=== PATIENT | male | born 1985 | race Two or more races ===

== ENCOUNTER 2017-11-08 17:34 | Inpatient (IN) | payer MEDICAID ==
[~2017-11-08] VITALS: Ht 185.4 cm; Wt 157.0 kg
[2017-11-08] MEDS ORDERED: GABA-533 PO (19:34)
[2017-11-08] MEDS ORDERED: ALPR1TAB7 PO (19:34)
[2017-11-08 19:58] LABS: AMPHET/METH SCREEN,URINE NEGATIVE (NEGATIVE); BARBITURATE SCREEN, URINE NEGATIVE (NEGATIVE); BENZODIAZEPINES SCREEN,URINE NEGATIVE (NEGATIVE); CANNABINOID SCREEN,URINE NEGATIVE (NEGATIVE); COCAINE SCREEN,URINE NEGATIVE (NEGATIVE); METHADONE SCREEN, URINE NEGATIVE (NEGATIVE); OPIATE SCREEN,URINE NEGATIVE (NEGATIVE); PHENCYCLIDINE SCREEN,URINE NEGATIVE (NEGATIVE)
[2017-11-08] MEDS ORDERED: LORazepam 2 MG TABLET PO ONE (20:00)
[2017-11-08 20:54] LABS: ANION GAP 10 mmol/L (8-16); CALCIUM, TOTAL 8.5 mg/dL (8.8-10.5); CARBON DIOXIDE 27 mmol/L (22-29); CHLORIDE 104 mmol/L (98-107); CREATININE 0.97 mg/dL (0.60-1.30); GLOMERULAR FILTR. RATE CALC > 60 mL/min (>60); GLUCOSE,RANDOM 108 mg/dL (70-110); SODIUM SERUM 141 mmol/L (136-145); UREA NITROGEN, BLOOD 12 mg/dL (7-18)
[2017-11-08 20:59] LABS: ALANINE AMINOTRANSFERASE 70 U/L (12-78); ALBUMIN 3.6 g/dL (3.4-5.0); ALKALINE PHOSPHATASE 70 U/L (46-116); ASPARTATE AMINOTRANSFERASE 43 U/L (15-37); BILIRUBIN,TOTAL 0.4 mg/dL (0.1-1.0); TOTAL PROTEIN, SERUM 6.9 g/dL (6.4-8.2)
[2017-11-08] MEDS ORDERED: DiphenhydrAMINE HCL 50 MG CAPSULE PO ONE (21:00)
[2017-11-08] MEDS ORDERED: HALOPERIDOL 5 MG TABLET PO ONE (21:00)
[2017-11-08] MEDS ORDERED: ZOLPIDEM TARTRATE 10 MG TABLET PO PRN (21:15)
[2017-11-08 21:20] LABS: BASOPHILS % (AUTO) 0.7 % (0.0-2.0); EOSINOPHILS % (AUTO) 0.7 % (1.0-6.0); HEMATOCRIT 42.9 % (41-53); HEMOGLOBIN 14.7 g/dL (13.5-17.5); LYMPHOCYTES # (AUTO) 4.5 K/uL (1.0-4.8); LYMPHOCYTES % (AUTO) 35.9 % (22.0-44.0); MEAN CORPUSCULAR HEMOGLOBIN 29.4 pg (26.0-34.0); MEAN CORPUSCULAR HGB CONC 34.2 G/dL (31.0-37.0); MEAN CORPUSCULAR VOLUME 86 fL (80-100); MONOCYTES # (AUTO) 1.2 K/uL (0.1-1.0); MONOCYTES % (AUTO) 9.8 % (2.0-9.0); NEUTROPHILS # (AUTO) 6.7 K/uL (1.8-7.7); NEUTROPHILS % (AUTO) 52.9 % (40.0-70.0); PLATELET COUNT (AUTO) 317 K/uL (150-450); RED BLOOD CELL COUNT(AUTO) 4.99 MIL/uL (4.50-5.90); RED CELL DISTRIBUTION WIDTH 13.7 % (11.5-14.5)
[2017-11-09 03:02] LABS: CHOL/HDL RATIO 2.9 (4.2-7.3); CHOLESTEROL 109 mg/dL (131-200); HDL CHOLESTEROL 38 mg/dL (40-60); LDL CHOL (CALC.) 45 mg/dL (0-130); TRIGLYCERIDES 131 mg/dL (15-150)
[2017-11-09] MEDS: LORazepam 2 MG TABLET PO PRN ×4 (04:58→20:00)
[2017-11-09 08:18] VITALS: BP 128/75
[2017-11-09] MEDS ORDERED: ALBUTEROL SULFATE HFA 90 MCG/PUFF 8 GM INHALER IH PRN (12:00)
[2017-11-09] MEDS ORDERED: MAGNESIUM HYDROXIDE SUSPENSION 30 ML UDCUP PO PRN (12:00)
[2017-11-09] MEDS ORDERED: LOPERAMIDE HCL 2 MG CAPSULE PO PRN (12:00)
[2017-11-09] MEDS ORDERED: MAG HYDROX/AL HYDROX/SIMETH ES 30 ML SUSPENSION UDCUP PO PRN (12:00)
[2017-11-09] MEDS ORDERED: IBUPROFEN 400 MG TABLET PO PRN (12:00)
[2017-11-09] MEDS ORDERED: CloNIDine HCL 0.1 MG TABLET PO PRN (12:00)
[2017-11-09] MEDS ORDERED: PETROLATUM,WHITE 71 GM JELLY TP PRN (12:00)
[2017-11-09] MEDS ORDERED: ONDANSETRON HCL 4 MG TABLET PO PRN (12:00)
[2017-11-09] MEDS ORDERED: DOCUSATE SODIUM 100 MG CAPSULE PO PRN (12:00)
[2017-11-09] MEDS ORDERED: ACETAMINOPHEN 325 MG TABLET PO PRN (12:00)
[2017-11-09] MEDS: HALOPERIDOL 5 MG TABLET PO PRN ×2 (14:52→20:00)
[2017-11-09 17:10] VITALS: BP 120/83
[2017-11-09 17:26] VITALS: BP 120/83
[2017-11-09 18:10] VITALS: BP 120/78
[2017-11-09 19:10] VITALS: BP 122/77
[2017-11-09 20:10] VITALS: BP 123/83
[2017-11-10 00:10] VITALS: BP 111/82
[2017-11-10 04:19] VITALS: BP 123/83
[2017-11-10 06:49] VITALS: BP 124/82
[2017-11-10] MEDS: LORazepam 2 MG TABLET PO PRN ×4 (06:53→20:19)
[2017-11-10] MEDS: NICOTINE 14 MG/24 HOUR PATCH TD SCH (08:06)
[2017-11-10 08:26] VITALS: BP 144/90
[2017-11-10] MEDS: HALOPERIDOL 5 MG TABLET PO PRN ×3 (08:52→20:18)
[2017-11-10 09:03] LABS: HEMOGLOBIN A1C 5.3 % (4.5-6.2)
[2017-11-10 09:04] LABS: CHOL/HDL RATIO 3.3 (4.2-7.3); THYROID STIMULATING HORMONE 1.63 uIU/mL (0.36-3.74)
[2017-11-10 16:12] VITALS: BP 128/83
[2017-11-10] MEDS ORDERED: LORazepam 2 MG TABLET PO PRN (17:45)
[2017-11-10 20:10] VITALS: BP 124/80
[2017-11-10] MEDS: MIRTAZAPINE 15 MG TABLET PO SCH (20:18)
[2017-11-11] VITALS (8 sets, daily range): BP systolic 105–124; BP diastolic 77–97
[2017-11-11] MEDS ORDERED: LORazepam 2 MG TABLET PO PRN (07:00)
[2017-11-11 07:52] LABS: BASOPHILS % (AUTO) 0.5 % (0.0-2.0); EOSINOPHILS % (AUTO) 1.7 % (1.0-6.0); HEMOGLOBIN 17.7 g/dL (13.5-17.5); LYMPHOCYTES # (AUTO) 3.3 K/uL (1.0-4.8); LYMPHOCYTES % (AUTO) 29.2 % (22.0-44.0); MEAN CORPUSCULAR HEMOGLOBIN 29.6 pg (26.0-34.0); MEAN CORPUSCULAR HGB CONC 34.7 G/dL (31.0-37.0); MEAN CORPUSCULAR VOLUME 86 fL (80-100); MONOCYTES # (AUTO) 1.1 K/uL (0.1-1.0); MONOCYTES % (AUTO) 9.7 % (2.0-9.0); NEUTROPHILS # (AUTO) 6.6 K/uL (1.8-7.7); NEUTROPHILS % (AUTO) 58.9 % (40.0-70.0); PLATELET COUNT (AUTO) 298 K/uL (150-450); RED BLOOD CELL COUNT(AUTO) 5.96 MIL/uL (4.50-5.90); RED CELL DISTRIBUTION WIDTH 13.6 % (11.5-14.5)
[2017-11-11] MEDS: GABAPENTIN 300 MG CAPSULE PO SCH ×3 (08:34→17:15)
[2017-11-11] MEDS: LORazepam 2 MG TABLET PO SCH ×4 (08:34→21:28)
[2017-11-11] MEDS: NICOTINE 14 MG/24 HOUR PATCH TD SCH (08:35)
[2017-11-11] MEDS: HALOPERIDOL 5 MG TABLET PO PRN (11:44)
[2017-11-11] MEDS: MIRTAZAPINE 15 MG TABLET PO SCH (21:28)
[2017-11-12] VITALS (7 sets, daily range): BP systolic 104–119; BP diastolic 64–74
[2017-11-12] MEDS: GABAPENTIN 300 MG CAPSULE PO SCH ×3 (08:41→16:43)
[2017-11-12] MEDS: LORazepam 2 MG TABLET PO SCH ×4 (08:41→21:08)
[2017-11-12] MEDS: HALOPERIDOL 5 MG TABLET PO PRN (09:06)
[2017-11-12] MEDS: MIRTAZAPINE 15 MG TABLET PO SCH (21:08)
[2017-11-13 02:30] VITALS: BP 104/64
[2017-11-13 05:33] VITALS: BP 104/64
[2017-11-13] MEDS ORDERED: LORazepam 1 MG TABLET PO PRN (07:00)
[2017-11-13 08:00] VITALS: BP 136/80
[2017-11-13] MEDS: LORazepam 1 MG TABLET PO SCH ×4 (08:37→21:03)
[2017-11-13] MEDS: HALOPERIDOL 5 MG TABLET PO PRN ×2 (08:37→16:53)
[2017-11-13] MEDS: GABAPENTIN 300 MG CAPSULE PO SCH ×3 (08:37→17:02)
[2017-11-13 08:43] VITALS: BP 136/80
[2017-11-13 08:45] LABS: BASOPHILS % (AUTO) 0.7 % (0.0-2.0); EOSINOPHILS % (AUTO) 1.7 % (1.0-6.0); HEMATOCRIT 48.1 % (41-53); HEMOGLOBIN 16.7 g/dL (13.5-17.5); LYMPHOCYTES # (AUTO) 3.5 K/uL (1.0-4.8); LYMPHOCYTES % (AUTO) 26.8 % (22.0-44.0); MEAN CORPUSCULAR HEMOGLOBIN 29.9 pg (26.0-34.0); MEAN CORPUSCULAR HGB CONC 34.7 G/dL (31.0-37.0); MEAN CORPUSCULAR VOLUME 86 fL (80-100); MONOCYTES # (AUTO) 1.3 K/uL (0.1-1.0); MONOCYTES % (AUTO) 10.2 % (2.0-9.0); NEUTROPHILS # (AUTO) 7.9 K/uL (1.8-7.7); NEUTROPHILS % (AUTO) 60.6 % (40.0-70.0); PLATELET COUNT (AUTO) 278 K/uL (150-450); RED BLOOD CELL COUNT(AUTO) 5.59 MIL/uL (4.50-5.90)
[2017-11-13 16:00] VITALS: BP 121/77
[2017-11-13 16:07] VITALS: BP 121/77
[2017-11-13] MEDS: MIRTAZAPINE 15 MG TABLET PO SCH (21:03)
[2017-11-14 00:42] VITALS: BP 110/62
[2017-11-14 01:27] VITALS: BP 110/62
[2017-11-14 06:25] VITALS: BP 116/68
[2017-11-14] MEDS: HALOPERIDOL 5 MG TABLET PO PRN ×2 (06:33→16:59)
[2017-11-14 08:00] VITALS: BP 116/78
[2017-11-14] MEDS: GABAPENTIN 300 MG CAPSULE PO SCH ×3 (08:32→16:17)
[2017-11-14] MEDS: LORazepam 1 MG TABLET PO PRN ×3 (08:59→18:47)
[2017-11-14 16:03] VITALS: BP 119/71
[2017-11-14 16:04] VITALS: BP 119/71
[2017-11-14] MEDS: MIRTAZAPINE 15 MG TABLET PO SCH (20:20)
[2017-11-14] MEDS ORDERED: MIRT15 PO (21:58)
[2017-11-14] MEDS ORDERED: GABA-531 PO (22:00)
[2017-11-15 01:06] VITALS: BP 118/73
[2017-11-15 01:22] VITALS: BP 118/72
[2017-11-15] MEDS: GABAPENTIN 300 MG CAPSULE PO SCH ×2 (08:15→12:41)
[2017-11-15] MEDS: HALOPERIDOL 5 MG TABLET PO PRN ×2 (08:16→12:41)
[2017-11-15 08:25] VITALS: BP 100/79
[2017-11-15 13:22] VITALS: BP 100/79
== END 2017-11-15 13:00 | disposition home or self-care (01) | DRG 751 ==
LOC: EMS 17:35 → AHU 11-09 07:40 → B3A 11-09 16:37 → B2S 11-09 17:07
PROVIDERS: ADMIT Psychiatry & Neurology Psychiatry; ATTEND Psychiatry & Neurology Psychiatry
DX: F33.3 Major depressive disorder, recurrent, severe with psychotic symptoms (principal); R45.851 Suicidal ideations; F10.20 Alcohol dependence, uncomplicated; Y90.9 Presence of alcohol in blood, level not specified; D64.9 Anemia, unspecified; D72.829 Elevated white blood cell count, unspecified; F41.9 Anxiety disorder, unspecified; F19.90 Other psychoactive substance use, unspecified, uncomplicated; R74.0 Nonspecific elevation of levels of transaminase and lactic acid dehydrogenase [LDH]; Z71.41 Alcohol abuse counseling and surveillance of alcoholic; Z59.0 Homelessness
CPT/HCPCS: 83036; 84443; 93005; 99285; G0480

== ENCOUNTER 2017-11-12 10:35 | Emergency (ER) | payer MEDICAID ==
[~2017-11-12] VITALS: Ht 185.4 cm; Wt 154.6 kg
[~2017-11-12 10:35] MED LIST: ALPR1TAB7 PO; GABA-533 PO
[2017-11-12] MEDS ORDERED: ONDANSETRON HCL 4 MG TABLET PO ONE (11:30)
[2017-11-12] MEDS ORDERED: HYDROCODONE/ACETAMINOPHEN 5-325 MG TABLET PO ONE (11:30)
[2017-11-12 11:49] VITALS: BP 146/89
== END 2017-11-12 12:04 | disposition other institution (70) ==
LOC: EMS 10:35
DX: K42.9 Umbilical hernia without obstruction or gangrene (principal); F20.9 Schizophrenia, unspecified; F31.9 Bipolar disorder, unspecified; F41.9 Anxiety disorder, unspecified
CPT/HCPCS: 99285; Q0162